=== PATIENT | female | born 1940 | race Caucasian/White ===

== ENCOUNTER → 2019-03-19 | Outpatient (CLI) | payer MEDICARE, BC ==
[~2019-03-19] MED LIST: ASPI81CH PO; CYAN1000; ESOM20 PO; INSDET100 SQ; INVOKANA300 MG; LISI20 PO; ROSU5 PO; VITAMIN D5000 UNI1
[2019-03-19 17:42] LABS: Source, Urine Catheter
[2019-03-19 17:57] LABS: Bilirubin, Urine Neg (Neg); Blood, Urine 1+ (Neg); Glucose Qualitative, Urine Neg (Neg); Ketones, Urine Neg (Neg); Leukocyte Esterase, Urine 2+ (Neg); Nitrite, Urine Neg (Neg); Protein, Urine Neg (Neg); Urobilinogen, Urine NORM (Normal)
[2019-03-19 18:07] LABS: Appearance, Urine Clear (Clear); Color, Urine Pale Yellow (P-Yellow)
[2019-03-19 18:11] LABS: Bacteria Rare /hpf; Red Blood Cells, Urine 0-2 /hpf (0-2); Squamous Epithelial Cells Not Seen /hpf (Few); White Blood Cells, Urine 0-2 /hpf (0-5)
== END ==
LOC: LAB SHORT 17:40 → LAB 17:40
PROVIDERS: Nurse Practitioner Women's Health
DX: R39.89 Other symptoms and signs involving the genitourinary system (principal)
CPT/HCPCS: 81001; 87077; 87086; 87186

== ENCOUNTER → 2019-04-08 | Outpatient (CLI) | payer MEDICARE, BC ==
[2019-04-08 18:11] LABS: Source, Urine Catheter
[2019-04-08 18:35] LABS: Bilirubin, Urine Neg (Neg); Blood, Urine 1+ (Neg); Glucose Qualitative, Urine 2+ (Neg); Ketones, Urine Neg (Neg); Leukocyte Esterase, Urine 1+ (Neg); Nitrite, Urine Neg (Neg); Protein, Urine Neg (Neg); Specific Gravity, Urine 1.015 (1.003-1.022); Urobilinogen, Urine NORM (Normal)
[2019-04-08 18:46] LABS: Appearance, Urine Clear (Clear); Color, Urine Yellow (P-Yellow)
[2019-04-08 18:47] LABS: Bacteria Mod /hpf; Red Blood Cells, Urine 0-2 /hpf (0-2); Squamous Epithelial Cells Rare /hpf (Few)
== END | disposition home or self-care (01) ==
LOC: LAB 18:10 → LAB SHORT 18:10
PROVIDERS: Nurse Practitioner Women's Health
DX: N39.0 Urinary tract infection, site not specified (principal)
CPT/HCPCS: 81001; 87077; 87086; 87186

== ENCOUNTER 2020-07-14 09:07 | Day surgery (SDC) | payer MEDICARE, BC ==
[~2020-07-14] VITALS: Ht 149.9 cm; Wt 56.6 kg
[~2020-07-14 09:07] MED LIST changes: -CYAN1000; +JANUMET 50-5001 EACH PO; +Lisinopril2.5 MG PO; -VITAMIN D5000 UNI1; +Vitamin B-121000 MCG PO; +Vitamin D2000 UNIT PO
--- NOTE | 2020-07-14 09:47 | NUR ---
PT ADMITTED TO [facility]. AGREES WITH PLANNED SURGERY. LUNG SOUNDS CLEAR. NOZIN TO NARES BILATERALLY.
--- NOTE | 2020-07-14 18:13 | NUR ---
SUMMARY MEDICATED X1 FOR PAIN AND NAUSEA. PT CURRENTLY SITTING IN CHAIR WITH EYES CLOSED. PT REPORTS PAIN LEVEL OF 6. RIGHT KNEE DRESSING CLEAN AND DRY, ELEVATED AND POLAR PACK IN PLACE. PT WITH FULL MOVEMENT AND SENSATION TO EXTREMITIES
[2020-07-15 04:09] LABS: BASOPHILS ABSOLUTE AUTO 0.04 K/mm3 (0.00-0.23); BASOPHILS PERCENT AUTO 0 % (0-2); EOSINOPHILS PERCENT AUTO 0 % (0-6); Hematocrit 30.9 % (33.0-51.0); Hemoglobin 9.9 g/dL (11.5-16.0); IMMATURE GRAN ABSOLUTE AUTO 0.04 K/mm3 (0.00-0.10); IMMATURE GRAN PERCENT AUTO 0 % (0-1); LYMPHOCYTES ABSOLUTE AUTO 0.75 K/mm3 (0.84-5.20); LYMPHOCYTES PERCENT AUTO 8 % (21-46); MONOCYTES ABSOLUTE AUTO 0.52 K/mm3 (0.16-1.47); MONOCYTES PERCENT AUTO 6 % (4-13); Mean Corpuscular HGB 30.6 pg (26.0-34.0); Mean Corpuscular Volume 95 fL (80-100); Mean Platelet Volume 10.4 fL (9.1-12.4); NEUTROPHILS ABSOLUTE AUTO 8.14 K/mm3 (1.96-9.15); NEUTROPHILS PERCENT AUTO 86 % (41-73); Platelet Count 258 K/mm3 (150-400); RDW Coefficient Variation 13.2 % (11.7-14.2); RDW Standard Deviation 46.1 fL (35.1-46.3); Red Blood Cell Count 3.24 M/mm3 (3.80-5.20); White Blood Cell Count 9.49 K/mm3 (4.00-11.30)
[2020-07-15 04:34] LABS: Anion Gap 4 mmol/L (6-16); Blood Urea Nitrogen 14 mg/dL (8-24); CO2, Blood 26 mmol/L (21-32); Calcium, Blood 8.4 mg/dL (8.5-10.1); Chloride, Blood 109 mmol/L (98-108); Creatinine, Blood 0.64 mg/dL (0.40-1.00); Glomerular Filtration Rate >60 (60-); Glucose, Blood 139 mg/dL (70-99); Magnesium, Blood 1.9 mg/dL (1.6-2.4); Potassium, Blood 4.2 mmol/L (3.5-5.5); Sodium, Blood 139 mmol/L (136-145)
--- NOTE | 2020-07-15 04:36 | NUR ---
SHIFT SUMMARY POD 1 R TKA [id number], VSS. PT UP AND AMBULAING. VOIDING, TOLERATING PO. PAIN MANAGED PER EMAR. NAUSEA PRESENT AT START OF SHIFT. REQUIRED 3 MEDICATIONS TO BRING DOWN. PT DENIES NAUSEA AT THIS TIME AND STATES PAIN IS BETTER MANAGED. PT SLEEPING IN CHAIR DURING SHIFT. PLAN IS TO WORK WITH PT AND DISCHARGE HOME TODAY.
[2020-07-15] MEDS ORDERED: OXYC5 PO (10:36)
[2020-07-15] MEDS ORDERED: SULTRIDS PO (10:37)
[2020-07-15] MEDS ORDERED: PROM25 PO (10:37)
--- NOTE | 2020-07-15 11:20 | NUR ---
PATIENT D/C'D HOME WITH FAMILY MEMBERS AT THIS TIME; ALL STATE UNDERSTANDING OF MEDS, ACTIVITY, WOUND CARE, F/U APPT, OP PT, ETC. PATIENT STATES PAIN WELL CONTROLLED W/ PO MEDS. VOIDING WELL. TOLERATING PO. NO C/O AT THIS TIME.
== END 2020-07-15 11:20 | disposition home or self-care (01) ==
LOC: ORSCMMR 09:07 → ORD 11:30 → ORSCMMR 11:30 → SURS 14:15 → ORSCMMR 14:15 → SURS 07-15 11:20 → ORSCMMR 07-15 11:20
PROVIDERS: Orthopaedic Surgery
PROC: 0SRC0J9 Replacement of Right Knee Joint with Synthetic Substitute, Cemented, Open Approach (ICD-10-PCS; principal; 2020-07-14 11:30)
PROC: 8E0YXBZ Computer Assisted Procedure of Lower Extremity (ICD-10-PCS; principal; 2020-07-14 11:30)
DX: M17.11 Unilateral primary osteoarthritis, right knee (principal); I10 Essential (primary) hypertension; E11.9 Type 2 diabetes mellitus without complications; Z87.891 Personal history of nicotine dependence; G47.33 Obstructive sleep apnea (adult) (pediatric); M79.7 Fibromyalgia; Z79.84 Long term (current) use of oral hypoglycemic drugs; Z79.82 Long term (current) use of aspirin; Z79.899 Other long term (current) drug therapy
CPT/HCPCS: 36415; 73560-RT; 80048; 82947; 83735; 85025; 88300; 97110; 97110-CQ; 97116; 97116-CQ; 97161; 97530; 97530-CQ; A9270; A9270-GY; C1713; C1776; J0171; J0690; J0735; J1100; J1815; J1885; J2250; J2370; J2405; J2704; J2765; J2795; J3010; J3370; J7030; J7120

== ENCOUNTER → 2021-11-03 | Outpatient (CLI) | payer MEDICARE, BC ==
[~2021-11-03] MED LIST changes: +OXYC5 PO; +PROM25 PO; +SULTRIDS PO
== END | disposition home or self-care (01) ==
LOC: LAB SHORT 09:04
DX: N39.0 Urinary tract infection, site not specified (principal)
CPT/HCPCS: 87077; 87086; 87186

== ENCOUNTER 2023-01-23 07:38 | Inpatient (IN) | payer MEDICARE, BC ==
[~2023-01-23] VITALS: Ht 152.4 cm; Wt 51.2 kg
[~2023-01-23 07:38] MED LIST changes: +ONDA4ODT MM
[2023-01-23 09:00] LABS: BASOPHILS ABSOLUTE AUTO 0.03 K/mm3 (0.00-0.23); BASOPHILS PERCENT AUTO 0 % (0-2); EOSINOPHILS ABSOLUTE AUTO 0.02 K/mm3 (0.00-0.68); EOSINOPHILS PERCENT AUTO 0 % (0-6); Hematocrit 38.4 % (33.0-51.0); Hemoglobin 12.3 g/dL (11.5-16.0); IMMATURE GRAN ABSOLUTE AUTO 0.01 K/mm3 (0.00-0.10); IMMATURE GRAN PERCENT AUTO 0 % (0-1); LYMPHOCYTES PERCENT AUTO 10 % (21-46); MONOCYTES ABSOLUTE AUTO 0.26 K/mm3 (0.16-1.47); MONOCYTES PERCENT AUTO 4 % (4-13); Mean Corpuscular HGB 29.2 pg (26.0-34.0); Mean Corpuscular Volume 91 fL (80-100); Mean Platelet Volume 10.4 fL (9.1-12.4); NEUTROPHILS ABSOLUTE AUTO 6.14 K/mm3 (1.96-9.15); NEUTROPHILS PERCENT AUTO 86 % (41-73); Platelet Count 282 K/mm3 (150-400); RDW Coefficient Variation 15.9 % (11.7-14.2); RDW Standard Deviation 52.6 fL (35.1-46.3); Red Blood Cell Count 4.21 M/mm3 (3.80-5.20); White Blood Cell Count 7.16 K/mm3 (4.00-11.30)
[2023-01-23 09:21] LABS: International Normalized Ratio 0.95
[2023-01-23 09:22] LABS: Albumin, Blood 3.4 g/dL (3.4-5.0); Bilirubin, Total 0.4 mg/dL (0.1-1.0); Bun/Creatinine Ratio 13.8 (12.0-20.0); Calcium, Blood 9.3 mg/dL (8.5-10.1); Creatinine, Blood 0.65 mg/dL (0.40-1.00); Globulin, Blood 3.3 g/dL (2.2-4.0); Potassium, Blood 3.6 mmol/L (3.5-5.5); Total Protein, Blood 6.7 g/dL (6.4-8.2)
[2023-01-23] MEDS ORDERED: JARDIANCE25 MG PO (10:21)
[2023-01-23] MEDS ORDERED: DONEPEZIL HCL10 MG PO (10:21)
[2023-01-23] MEDS ORDERED: ONDA4ODT PO (10:22)
[2023-01-23 11:40] LABS: CHOL/HDL RATIO 2.5; Cholesterol 231 mg/dL (50-200); HDL Cholesterol 94 mg/dL (>39); LDL/HDL RATIO 1.2; Low Density Lipoprotein Chol 114 mg/dL (0-110); Triglycerides 117 mg/dL (30-160); Very Low Density Lipoprot Chol 23 mg/dL (6-32)
--- NOTE | 2023-01-23 12:30 | NUR ---
PT ARRIVED ON FLOOR AT 1210 FROM ED. FAMILY AT BEDSIDE. PT TRANSFERED WITH SLIDER SHEET. EXTRA LINENS REMOVED AND NEW ATTENDS PLACED. PT AND FAMILY ORRIENTED TO ROOM. CALL LIGHT USE EXPLAINED TO PT AND FAMILY. WARM BLANKETS PROVIDED. PT RESTING IN BED AT THIS TIME.
[2023-01-23 15:59] VITALS: BP 138/59
--- NOTE | 2023-01-23 18:06 | NUR ---
SHIFT SUMMARY PT A&OX2-3 AND PLEASANT. NO C/O PAIN. PT HAS LARGE GROUP OF FAMILY MEMBERS AT BEDSIDE. PHYSICAL THERAPY TO PT'S ROOM BUT PT REQUESTED TO WORK WITH PHYSICAL THERAPY TOMORROW WHEN SHE'S HAD MORE TIME FOR CARE AND REST. DOBHOFF PLACED AND CONFIRMED WITH XRAY. PT RESTING IN BED AT THIS TIME. BED IN LOWEST POSITION AND CALL LIGHT IN REACH.
[2023-01-23 20:38] VITALS: BP 135/65
[2023-01-24 04:34] VITALS: BP 113/62
--- NOTE | 2023-01-24 04:43 | NUR ---
SHIFT HAS BEEN UNREMARKABLE. PT RESTING IN BED THROUGHOUT SHIFT COMFORTABLY. HAS DENIED PAIN THROUGHOUT SHIFT. PER DAY SHIFT REPORT, PT IS SCHEDULED TO START NG TUBE FEEDING SUPPLEMENTATION BUT REQUIRED MATERIALS ARE YET TO ARRIVE. LIKELY TO START IN MORNING. OPTED NOT TO INFUSE IV FLUIDS. Q 6 CBGs TAKEN PER ORDERS. NO HUMALOG COVERAGE REQUIRED THUS FAR. PT ABLE TO MAKE NEEDS KNOWN ALTHOUGH HAS NOT USED CALL LIGHT THIS SHIFT. PUREWICK IN PLACE. BED LOCKED IN LOWEST POSITION. CALL LIGHT LEFT WITHIN REACH.
[2023-01-24 06:16] LABS: Bun/Creatinine Ratio 15.8 (12.0-20.0); Calcium, Blood 8.8 mg/dL (8.5-10.1); Creatinine, Blood 0.63 mg/dL (0.40-1.00); Magnesium, Blood 1.9 mg/dL (1.6-2.4); Phosphorus, Blood 3.6 mg/dL (2.5-4.9); Potassium, Blood 3.5 mmol/L (3.5-5.5)
[2023-01-24 07:20] VITALS: BP 122/57
[2023-01-24 15:50] VITALS: BP 132/60
--- NOTE | 2023-01-24 18:36 | NUR ---
SHIFT SUMMARY PT SEEN BY ISAURO YEN TODAY. PT WAS ABLE TO DO FAIRLY WELL WITH EVAL AND DIET ORDERS GIVEN. PT TO GO FOR SWALLOW STUDY TOMORROW. ISAURO THERAPIST RECCOMENDS THAT DOBHOFF STAY IN PLACE UNTIL SWALLOW STUDY IS COMPLETE. FAMILYS HAS BEEN AT BEDSIDE T/O DAY AND PER FAMILY, PT IS DOING WELL SWALLOWING SMALL BITES OF FOOD. PT ALSO WORKED WITH OT AND PT TODAY. PT IS NOT VERY TALKATIVE BUT PLEASANT AND COOPERATIVE WITH CARE. BED IN LOWEST POSITION AND CALL LIGHT IS WITHIN REACH.
[2023-01-24 19:42] VITALS: BP 136/64
[2023-01-25 04:58] VITALS: BP 122/64
--- NOTE | 2023-01-25 05:53 | NUR ---
SUMMARY: NO ACUTE EVENTS OVERNIGHT. PATIENT AOX4. L SIDE WEAKNESS FLACID AND L FACIAL DROOP. PATIENT USED PURE WIC OVERNIGHT. TURNED IN BED [id number]. PATIENT PLEASANT AND COMPLIANT WITH ALL CARE. PLAN FOR BARIUM SWALLOW EVAL TODAY. TUBE FEEDS RUNNING OVERNIGHT NO RESIDUALS. BRUSHED PATIENT HAIR THIS MORNING TO REMOVED MATTED SPOTS. BED ALARM ON FOR SAFETY
[2023-01-25 07:22] VITALS: BP 107/56
--- NOTE | 2023-01-25 13:38 | NUR ---
DC DOBHOFF ORDER- PT HAD A MODIFIED BARRIUM SWALLOW COMPLETED, DIET INCREASED TO [facility] SOFT GROUND MEAT. SPOKE TO DIETITIAN GRIFFIN, HE MET WITH THE PT, AND STATED THE PT WOULD LIKELY DO WELL WITH THE TUBE FEEDS DC'D. CALLED DR PETERSEN AND UPDATED HIM. RECIEVED ORDER TO DC TUBE FEEDING AND DC DOBHOFF.
[2023-01-25 14:48] VITALS: BP 115/66
--- NOTE | 2023-01-25 16:35 | NUR ---
SHIFT SUMMARY- DOBHOFF WAS DC'D TODAY AND PT DIET WAS INCREASED TO MECHANICAL SOFT WITH GROUND MEAT. PT SEEMS TO EAT WELL WITH HER FAMILY AT THE BEDSIDE. PT HAS BEEN COOPERATIVE WITH ALL CARE AND WORKED WITH PHYICAL THERAPY AND OT. PT HAS LEFT FACIAL DROOP AND EFT ARM AND LEG ARE FLACCID, HOWEVER THE PT MAINTAINS THAT SHE CAN STILL FEEL THE EXTREMITY, SHE ALSO HAS SOME LEFT SIDED NEGELCT AND TENDS TO TRY TO ROLL TO THE RIGHT SIDE. NOTED TODAY THAT SHE HAD ARED SPOT ON HER RIGHT COCCYX. PLACED A MEPILEX OVER THE AREA THAT WAS RED WITH SOME AREAS OF THE REDNESS NON-BLANCHABLE. PT HAS BEEN REPOSITIONED Q2 T/O THE SHIFT. SHE WAS JUST SWITCHED TO RIGHT SIDE LYING (OFF OF HER SORE SPOT). PT HAS SEVERAL SCABS, THE ONE ON HER CHEEK HAS BLED A TINY AMOUNT THIS SHIFT. PT IN BED, DAUGHTER AT THE BEDSIDE,NO S&S OF DISTRESS NOTED. WILL PASS ALL ON TO NIGHT RN IN BEDSIDE REPORT.
[2023-01-25 19:52] VITALS: BP 131/84
--- NOTE | 2023-01-26 04:28 | NUR ---
SHIFT SUMMARY NOC PT A/O X 4. PLEASANT AND COOPERATIVE WITH CARE. NO ACUTE CHANGES TO REPORT. PT ON TELE RUNNING NSR @ 66 BPM. PT BEING REPOSITIONED Q2H/PRN. MEPILEX ON COCCYX IS C/D/I. PT IS CURRENTLY RESTING WITH BED IN LOWEST POSITION, AND CALL LIGHT WITHIN REACH.
[2023-01-26 06:02] VITALS: BP 113/57
[2023-01-26 07:30] VITALS: BP 114/52
[2023-01-26 16:07] VITALS: BP 116/62
--- NOTE | 2023-01-26 17:24 | NUR ---
SHIFT SUMMARY- PT ALERT AND ORIENTED, INCONTINENT OF BOWEL AND BLADDER PUREWIC IN PLACE. FAMILY AT THE BEDSIDE. PT NEEDS ASSISTANCE WITH MEALS TO REMIND HER TO SWALLOW TWICE AFTER EACH BITE. PLAN IS TO DC TO SNF WHEN POSSIBLE. PT IN BED, NO S&S OF DISTRESS NOTED AT THIS TIME.
--- NOTE | 2023-01-26 18:10 | NUR ---
ASSUMED CARE OF PT @1700HRS.
--- NOTE | 2023-01-26 18:26 | NUR ---
Spirirtual Care Visit | Pt. request Pt. is awake in bed and welcomes my visit. Pt. is pleasant as she finishes being fed with soft food. Facilitate a life review and consider matters of henri and belief. Pt. displays evidence of being a devoted memeber of the pentecostal henri. Pt. verbalized the comfort of having Father Russell come and annoint her. Pt. verbalized a desire to "get her strength back." Prayed with Pt. Pt. verbalized gratitude for the spiritual care visit.
[2023-01-26 19:51] VITALS: BP 146/74
--- NOTE | 2023-01-27 02:57 | NUR ---
SHIFT SUMMARY NOC PT A/O X 4. PLEASANT AND COOPERATIVE WITH CARE. NO ACUTE CHANGES TO REPORT. PT REPORTS HAVING MORE SENSATION IN L SIDE POST CVA. PT ON TELE RUNNING SINUS RHTYHM IN 80'S. PT HAS PUREWICK IN PLACE DRAINING TO SUCTION. PT HAS BEEN SWABBED FOR DISCHARGE TOMORROW TO [facility] PENDING NEGATIVE C-19 TEST. PT IS CURRENTLY RESTING WITH BED IN LOWEST POSITION, AND CALL LIGHT WITHIN REACH.
[2023-01-27 03:43] VITALS: BP 111/73
[2023-01-27 04:41] LABS: SARS-Cov-2 (COVID-19) PCR, MMC NEGATIVE (NEGATIVE)
[2023-01-27 05:01] LABS: BASOPHILS ABSOLUTE AUTO 0.02 K/mm3 (0.00-0.23); BASOPHILS PERCENT AUTO 0 % (0-2); EOSINOPHILS PERCENT AUTO 0 % (0-6); Hematocrit 39.2 % (33.0-51.0); Hemoglobin 12.8 g/dL (11.5-16.0); IMMATURE GRAN ABSOLUTE AUTO 0.03 K/mm3 (0.00-0.10); IMMATURE GRAN PERCENT AUTO 0 % (0-1); LYMPHOCYTES ABSOLUTE AUTO 0.33 K/mm3 (0.84-5.20); LYMPHOCYTES PERCENT AUTO 3 % (21-46); MONOCYTES ABSOLUTE AUTO 0.43 K/mm3 (0.16-1.47); MONOCYTES PERCENT AUTO 4 % (4-13); Mean Corpuscular HGB 29.2 pg (26.0-34.0); Mean Corpuscular HGB Conc 32.7 g/dL (31.5-36.5); Mean Corpuscular Volume 90 fL (80-100); Mean Platelet Volume 10.8 fL (9.1-12.4); NEUTROPHILS ABSOLUTE AUTO 9.71 K/mm3 (1.96-9.15); NEUTROPHILS PERCENT AUTO 92 % (41-73); Platelet Count 260 K/mm3 (150-400); RDW Coefficient Variation 15.8 % (11.7-14.2); RDW Standard Deviation 51.7 fL (35.1-46.3); Red Blood Cell Count 4.38 M/mm3 (3.80-5.20); White Blood Cell Count 10.52 K/mm3 (4.00-11.30)
[2023-01-27 05:45] LABS: Albumin, Blood 3.1 g/dL (3.4-5.0); Albumin/Globulin Ratio 0.8 (0.8-1.8); Bilirubin, Total 0.7 mg/dL (0.1-1.0); Bun/Creatinine Ratio 35.8 (12.0-20.0); Calcium, Blood 8.9 mg/dL (8.5-10.1); Creatinine, Blood 0.61 mg/dL (0.40-1.00); Globulin, Blood 3.9 g/dL (2.2-4.0); Potassium, Blood 3.8 mmol/L (3.5-5.5)
[2023-01-27 07:24] VITALS: BP 123/59
[2023-01-27] MEDS ORDERED: ATOR80 PO (11:45)
[2023-01-27] MEDS ORDERED: CLOP75 PO (11:46)
--- NOTE | 2023-01-27 14:53 | NUR ---
PT DC'D 1350 VIA WHEELCHAIR TRANSPORT TO [facility]- EVA CALLED REPORT TO ROSEMARIE. DAUGHTER FOLLOWED MOM TO FACILITY.
== END 2023-01-27 14:31 | DRG 65 ==
LOC: ER 07:38 → MEDS 11:01 → ENPENDDIS 01-27 10:53 → MEDS 01-27 14:31
PROVIDERS: Emergency Medicine; Family Medicine; Internal Medicine; ADMIT Internal Medicine
PROC: 0DH67UZ Insertion of Feeding Device into Stomach, Via Natural or Artificial Opening (ICD-10-PCS; principal; 2023-01-23)
DX: I63.9 Cerebral infarction, unspecified (principal); G81.94 Hemiplegia, unspecified affecting left nondominant side; Z66 Do not resuscitate; Z20.822 Contact with and (suspected) exposure to COVID-19; R29.810 Facial weakness; E11.9 Type 2 diabetes mellitus without complications; I10 Essential (primary) hypertension; E55.9 Vitamin D deficiency, unspecified; R13.10 Dysphagia, unspecified; E78.1 Pure hyperglyceridemia; G30.9 Alzheimer's disease, unspecified; F02.80 Dementia in other diseases classified elsewhere, unspecified severity, without behavioral disturbance, psychotic disturbance, mood disturbance, and anxiety; Z88.1 Allergy status to other antibiotic agents; Z98.84 Bariatric surgery status; Z96.651 Presence of right artificial knee joint; Z98.890 Other specified postprocedural states; Z87.891 Personal history of nicotine dependence; Z88.8 Allergy status to other drugs, medicaments and biological substances; Z91.040 Latex allergy status; Z79.82 Long term (current) use of aspirin; Z79.899 Other long term (current) drug therapy; W06.XXXA Fall from bed, initial encounter; Y92.009 Unspecified place in unspecified non-institutional (private) residence as the place of occurrence of the external cause
CPT/HCPCS: 36415; 70450; 70496; 70498; 71045; 74230; 80048; 80053; 80061; 82947; 83036; 83735; 84100; 84443; 85025; 85610; 85730; 92526; 92610; 92611; 93005; 93010; 93306; 97110; 97112; 97161; 97166; 97535; 99285-25; A9270; J1650; Q9967; U0002

== ENCOUNTER 2023-02-04 20:02 | Observation (INO) | payer MEDICARE, BC ==
[~2023-02-04] VITALS: Ht 144.8 cm; Wt 45.4 kg
[~2023-02-04 20:02] MED LIST changes: +ATOR80 PO; +CLOP75 PO; +DONEPEZIL HCL10 MG PO; +JARDIANCE25 MG PO; +ONDA4ODT PO
[2023-02-04 20:49] LABS: BASOPHILS ABSOLUTE AUTO 0.03 K/mm3 (0.00-0.23); BASOPHILS PERCENT AUTO 0 % (0-2); EOSINOPHILS PERCENT AUTO 0 % (0-6); Hematocrit 47.3 % (33.0-51.0); Hemoglobin 14.8 g/dL (11.5-16.0); IMMATURE GRAN ABSOLUTE AUTO 0.06 K/mm3 (0.00-0.10); IMMATURE GRAN PERCENT AUTO 0 % (0-1); LYMPHOCYTES ABSOLUTE AUTO 0.49 K/mm3 (0.84-5.20); LYMPHOCYTES PERCENT AUTO 3 % (21-46); MONOCYTES PERCENT AUTO 6 % (4-13); Mean Corpuscular HGB Conc 31.3 g/dL (31.5-36.5); Mean Corpuscular Volume 93 fL (80-100); Mean Platelet Volume 11.5 fL (9.1-12.4); NEUTROPHILS ABSOLUTE AUTO 13.25 K/mm3 (1.96-9.15); NEUTROPHILS PERCENT AUTO 91 % (41-73); Platelet Count 485 K/mm3 (150-400); RDW Coefficient Variation 16.6 % (11.7-14.2); RDW Standard Deviation 57.4 fL (35.1-46.3); White Blood Cell Count 14.63 K/mm3 (4.00-11.30)
[2023-02-04 21:14] LABS: Albumin, Blood 3.7 g/dL (3.4-5.0); Albumin/Globulin Ratio 0.7 (0.8-1.8); Bilirubin, Direct 0.2 mg/dL (0.0-0.3); Bilirubin, Indirect 0.4 mg/dL (0.1-0.7); Bilirubin, Total 0.6 mg/dL (0.1-1.0); Bun/Creatinine Ratio 37.8 (12.0-20.0); Calcium, Blood 9.6 mg/dL (8.5-10.1); Creatinine, Blood 2.46 mg/dL (0.40-1.00); Globulin, Blood 5.2 g/dL (2.2-4.0); Magnesium, Blood 3.8 mg/dL (1.6-2.4); Phosphorus, Blood 5.9 mg/dL (2.5-4.9); Potassium, Blood 4.5 mmol/L (3.5-5.5); Total Protein, Blood 8.9 g/dL (6.4-8.2)
[2023-02-04 21:42] LABS: International Normalized Ratio 0.99; Prothrombin Time Results 10.4 Sec (9.7-11.5)
[2023-02-04 23:27] LABS: Source, Urine Straight Cath
[2023-02-04 23:33] LABS: Blood, Urine 3+ (Neg); Glucose Qualitative, Urine 4+ (Neg); Ketones, Urine 2+ (Neg); Leukocyte Esterase, Urine 3+ (Neg); Nitrite, Urine Pos (Neg); Protein, Urine 2+ (Neg); Specific Gravity, Urine 1.015 (1.003-1.022); Urobilinogen, Urine NORM (Normal)
[2023-02-04 23:35] LABS: Appearance, Urine Hazy (Clear); Bilirubin, Urine 1+ (Neg); Color, Urine Yellow (P-Yellow)
[2023-02-04] MEDS ORDERED: ATORVASTATIN CA80 M1 PO (23:51)
[2023-02-04] MEDS ORDERED: DONEPEZIL HCL5 M2 PO (23:52)
[2023-02-04 23:58] LABS: Amorphous Light (0-Heavy); Bacteria Many /hpf; Squamous Epithelial Cells Rare /hpf (Few); White Blood Cells, Urine TNTC /hpf (0-5)
[2023-02-05 00:12] LABS: Influenza A, PCR NEGATIVE (NEGATIVE); Influenza B, PCR NEGATIVE (NEGATIVE); Resp Syncytial Virus, PCR NEGATIVE (NEGATIVE); SARS-Cov-2 (COVID-19) PCR, MMC NEGATIVE (NEGATIVE)
--- NOTE | 2023-02-05 00:45 | NUR ---
ADMIT NOTE; PT ARRIVES FROM THE ED VIA GURNEY. THE PT IS ABLE TO SHAKE HER HEAD YES OR NO BUT IS NOT ABLE TO TALK AT ALL. THE PTS L SIDE IS FLACCID FROM A PREVIOUS CVA. THE PT IS UNABLE TO AMBULATE AT THIS TIME, THEREFORE THE PT WAS TRANSFERED VIA SLIDER SHEET. THE PTS R LEG IS RESTLESS, THE PTS DAUGHTER IS AT BEDSIDE AND STATES THAT SHE HAS MUSCLE SPASMS IN THE R LEG. I MEDICATED THE PT WITH ATIVAN FOR MUSCLE SPASMS. THE PT APPEARS TO BE IN NO OTHER ACUTE DISTRESS. CURRENTLY THE PT IS LAYING IN BED WITH THE BED IN THE LOWEST POSITION AND THE CALL LIGHT AT BEDSIDE.
[2023-02-05 00:52] VITALS: BP 99/73
[2023-02-05 01:02] LABS: Bun/Creatinine Ratio 37.9 (12.0-20.0); Calcium, Blood 8.8 mg/dL (8.5-10.1); Creatinine, Blood 2.32 mg/dL (0.40-1.00); Potassium, Blood 4.6 mmol/L (3.5-5.5)
[2023-02-05] MEDS ORDERED: DOCU100 PO (03:25)
[2023-02-05] MEDS ORDERED: JARDIANCE25 MG PO (03:26)
--- NOTE | 2023-02-05 04:38 | NUR ---
SHIFT SUMMARY; NO ACUTE CHANGES SINCE ADMIT. THE PT IS STILL UNABLE TO TALK AT THIS TIME. THE PT CAN NOD HER HEAD YES OR NO AT TIMES. THE PT IS WITHDRAWL, LETHARGIC LIKE. THE PTS L SIDE IS COMPLETELY FLACCID FROM A PREVIOUS CVA. HE PTS R LEG IS SPASTIC, THE PTS DAUGHTER WAS AT BEDSIDE UPON ADMIT AND STATES THAT HER MOM HAS MUSCLE SPASMS IN HER R LEG. I GAVE THE PT ATIVAN FOR SPASMS AND THAT SEEMED TO BE VERY AFFECTIVE. THE PT OTHERWISE DOES NOT SHOW ANY PHYSICAL SIGNS OF PAIN, CHEST PAIN/PRESSURE OR SOB. CURRENTLY THE PT IS LAYING IN BED WITH THE BED IN THE LOWEST POSITION AND THE CALL LIGHT IN HER LAP.
[2023-02-05 05:02] LABS: BASOPHILS ABSOLUTE AUTO 0.02 K/mm3 (0.00-0.23); BASOPHILS PERCENT AUTO 0 % (0-2); EOSINOPHILS PERCENT AUTO 0 % (0-6); Hematocrit 45.6 % (33.0-51.0); Hemoglobin 14.1 g/dL (11.5-16.0); IMMATURE GRAN ABSOLUTE AUTO 0.05 K/mm3 (0.00-0.10); IMMATURE GRAN PERCENT AUTO 0 % (0-1); LYMPHOCYTES ABSOLUTE AUTO 0.59 K/mm3 (0.84-5.20); LYMPHOCYTES PERCENT AUTO 5 % (21-46); MONOCYTES ABSOLUTE AUTO 0.72 K/mm3 (0.16-1.47); MONOCYTES PERCENT AUTO 6 % (4-13); Mean Corpuscular HGB 28.8 pg (26.0-34.0); Mean Corpuscular HGB Conc 30.9 g/dL (31.5-36.5); Mean Corpuscular Volume 93 fL (80-100); Mean Platelet Volume 11.2 fL (9.1-12.4); NEUTROPHILS ABSOLUTE AUTO 11.76 K/mm3 (1.96-9.15); NEUTROPHILS PERCENT AUTO 89 % (41-73); Platelet Count 445 K/mm3 (150-400); RDW Coefficient Variation 16.9 % (11.7-14.2); RDW Standard Deviation 57.8 fL (35.1-46.3); White Blood Cell Count 13.14 K/mm3 (4.00-11.30)
[2023-02-05 05:38] LABS: Bun/Creatinine Ratio 40.1 (12.0-20.0); Creatinine, Blood 2.27 mg/dL (0.40-1.00); Potassium, Blood 4.2 mmol/L (3.5-5.5)
[2023-02-05 05:53] VITALS: BP 120/71
[2023-02-05 08:00] VITALS: BP 125/85
[2023-02-05 09:11] LABS: Bun/Creatinine Ratio 41.1 (12.0-20.0); Calcium, Blood 8.6 mg/dL (8.5-10.1); Creatinine, Blood 2.19 mg/dL (0.40-1.00); Potassium, Blood 3.8 mmol/L (3.5-5.5)
--- NOTE | 2023-02-05 14:17 | NUR ---
Spiritual Care | Nurse request Pt. is comfort care and is mostly non responsive. Family members have gathered around her and are read scriptures to her, and praying. This sustainable communities designer participated in the prayers by offering prayers of confort and a provision of ania and hope and including a triune benediction. Family did verbalize a request of this sustainable communities designer to let Father Srinathtus know that the Pt. was presently dying, but that Father Russell offered "Prayers for the Sick" when she was first admitted two weeks ago. Contacted Father Jonathan' cell phone and left a voicemail message.
--- NOTE | 2023-02-05 15:05 | NUR ---
Spiritual Care Follow up. Informed family that Father Jonathan will be coming to see the Pt. Family verbalized gratitude for the spiritual care visit.
--- NOTE | 2023-02-05 15:44 | NUR ---
SHIFT SUMMARY: PATIENT PLACED ON COMFORT CARE. PLAN WAS HOME WITH HOSPICE, BUT AFTER ANUSHA CARE, PATIENT'S BREATHING AND COLOR CHANGED, ANTICIPATING IMMINENT DEMISE. LARGE FAMILY AT BEDSIDE. FATHER MAGY AT BEDSIDE AT THIS TIME, PRESUMABLY FOR LAST RITES. MOVING PATIENT TO ROOM 308, LARGER ROOM TO BETTER ACCOMODATE LG NUMBER OF FAMILY. FTF REPORT GIVEN TO Jessie SANCHEZ RN.
--- NOTE | 2023-02-05 16:39 | NUR ---
PATIENT TRANSFERRED TO ROOM 308 TO BETTER ACCOMODATE FAMILY. EVA SANCHEZ NOTIFIED.
--- NOTE | 2023-02-05 17:50 | NUR ---
DRY MOUTH PROVIDED PATIENT AND FAMILY WITH SOME ORAL SWABS TO HELP MOISTEN PATIENTS MOUTH. WHEN ADMINISTERING ROXINOL, HER TOUNGE WAS NOTED TO BE VERY DRY.
--- NOTE | 2023-02-06 05:01 | NUR ---
SHIFT SUMMARY PT MINIMALLY RESPONSIVE, WITH PERIODS OF APENA. MOIST LUNG SOUNDS, SCOPOLAMINE PATCH BEHIND RIGHT EAR, AND USING SL ATROPINE SULFATE NEEDED. MEDICATING FOR PAIN WITH SL ROXANOL. ATTENDS IN PLACE. FAMILY AT BEDSIDE T/O NIGHT.
--- NOTE | 2023-02-06 11:22 | NUR ---
Comfort care visit - Pt surrounded by multiple family members, including 2-3 in bed with her. Case conferenced with RN prior to visit and she had just been in to assess and medicate for comfort per eMAR. Pt appears completely comfortable and peaceful. Approx. 7-8 family members in room and surrounding pt. Resp slow, shallow with apnic periods noted. Family denies any needs at this time. Comfort care cart in room also. I thanked family for being present. Pt is obviously enormously loved and tended to.
--- NOTE | 2023-02-06 14:01 | NUR ---
Spiritual Care Visit | Comfort Care / EOL education Pt. has been lingering on comfort care for over a day. Family members are present. Nurse had given a premiminary indication that the Pt. had passed, but Pt. is observed to continue taking shallow breaths. At the families request scripture is read. Yesterday Father Jonathan performed "prayer for the sick." Facilitated life stories of the Pt. Family moved appropriately from tears to laughter, and back again. Family verbalized gratitude for the spiritual care visit. [facility] When the Pt. passes the family has chosen [facility] for their /cremation services. Family has been educated on the EOL protocol, however this sub arc operator will remain available to the family.
--- NOTE | 2023-02-06 16:01 | NUR ---
PATIENT AT 1457 WITH FAMILY AT BEDSIDE. VERIFIED BY AUSCULTATION BY [address] RN'S[address] CHARGE NURSE AND DR. NOEL NOTIFIED. FAMILY CHOSE [facility] FOR THE HOME. POST MORTEM CARE COMPLETED. FAMILY TOOK ALL BELONGING HOME.
== END 2023-02-06 17:28 | disposition hospice, home (50) ==
LOC: ER 20:02 → MEDS 20:03 → ENPENDDIS 02-05 10:34 → MEDS 02-05 16:34
PROVIDERS: Emergency Medicine; Family Medicine; ADMIT Internal Medicine
DX: N17.9 Acute kidney failure, unspecified (principal); G30.9 Alzheimer's disease, unspecified; F02.80 Dementia in other diseases classified elsewhere, unspecified severity, without behavioral disturbance, psychotic disturbance, mood disturbance, and anxiety; E11.9 Type 2 diabetes mellitus without complications; I63.9 Cerebral infarction, unspecified; G81.90 Hemiplegia, unspecified affecting unspecified side; N39.0 Urinary tract infection, site not specified; M62.838 Other muscle spasm; E87.0 Hyperosmolality and hypernatremia; Z20.822 Contact with and (suspected) exposure to COVID-19; Z86.73 Personal history of transient ischemic attack (TIA), and cerebral infarction without residual deficits
CPT/HCPCS: 0241U; 36415; 70450; 71045; 80048; 80053; 81001; 82248; 82947; 83605; 83735; 84100; 85025; 85610; 85730; 86850; 86900; 86901; 87040; 87077; 87086; 87186; 93005; 93010; 96361; 96365; 96375; 96376; 99285-25; A9270; G0378; J0696; J1815; J2060; J7030; J7070